=== PATIENT | female | born 1990 | race African-American/Black ===

== ENCOUNTER 2020-05-27 05:30 | Inpatient (IN) | payer OTHER ==
[~2020-05-27 05:30] MED LIST: AMPICILLIN SODIUM 2 GM VIAL IVPB ONE; ELECTROLYTE-148 SOLN 1,000 ML IV SCH
[2020-05-27] MEDS ORDERED: AMPICILLIN SODIUM 2 GM VIAL ONE (06:17)
[2020-05-27 06:24] VITALS: BMI 34.1
[2020-05-27 08:23] LABS: INR 0.91 (0.83-1.09); PROTHROMBIN TIME (PATIENT) 11.1 SEC (9.7-13.0)
[2020-05-27 08:25] LABS: ACTIVATED PTT 31.9 SECONDS (25.2-36.5)
[2020-05-27 08:26] LABS: CALCIUM 9.8 mg/dL (8.5-10.1)
[2020-05-27 08:27] LABS: BLOOD UREA NITROGEN 7.5 mg/dL (7-18)
[2020-05-27 08:30] LABS: BASO % 0.5 % (0-2.0); CREATININE 0.7 mg/dL (0.55-1.3); EOS % 0.3 % (0-4.5); HEMATOCRIT 35.7 % (32.4-45.2); HEMOGLOBIN 12.5 GM/dL (10.7-15.3); MCH 31.6 pg (25.7-33.7); MEAN CELL VOLUME 90.3 fl (80-96); MEAN PLT VOLUME 9.7 fl (7.5-11.1); MONO % 8.9 % (3.8-10.2); NEUT % 74.3 % (42.8-82.8); PLATELET COUNT 247 K/MM3 (134-434); RBC 3.95 M/mm3 (3.60-5.2); RDW 14.5 % (11.6-15.6); WHITE BLOOD COUNT 10.4 K/mm3 (4.0-10.0)
[2020-05-27] MEDS ORDERED: AMPICILLIN SODIUM 1 GM VIAL IVPB SCH (09:20)
[2020-05-27] MEDS ORDERED: PCA PUMP NR ONE (09:23)
[2020-05-27] MEDS ORDERED: FENTANYL/BUPIVACAINE/NS/PF - PCEA - 50 ML DISP.SYRIN EP ONE (09:23)
[2020-05-27 09:38] LABS: HIV INTERPRETATION NEGATIVE (NEGATIVE)
[2020-05-27] MEDS ORDERED: BUPIVACAINE HCL/PF 0.25% (2.5MG/ML) 10 ML VIAL ONE (09:57)
[2020-05-27] MEDS: FENTANYL/BUPIVACAINE/NS/PF - PCEA - 50 ML DISP.SYRIN EP SCH (10:25)
[2020-05-27] MEDS ORDERED: AMPICILLIN SODIUM 1 GM VIAL ONE (10:30)
[2020-05-27] MEDS: AMPICILLIN SODIUM 1 GM VIAL IVPB SCH ×2 (10:30→15:57)
[2020-05-27] MEDS ORDERED: NALOXONE HCL 0.4 MG/ML VIAL IVPUSH PRN (10:41)
[2020-05-27] MEDS ORDERED: OXYTOCIN 20 UNITS in 0.9% NS 20 UNIT/1,000 ML INFUS.BAG IV ONE ×2 (12:35→13:42)
[2020-05-27] MEDS ORDERED: LIDOCAINE HCL 1% PRESERVATIVE FREE - 30ML VIAL ONE (12:36)
[2020-05-27] MEDS ORDERED: BENZOCAINE 20% 57 GM BOTTLE TP PRN (13:27)
[2020-05-27] MEDS ORDERED: BENZOCAINE 28 GM HEMORRHOIDAL OINTMENT TP PRN (13:27)
[2020-05-27] MEDS ORDERED: WITCH HAZEL 50% (TUCKS) 40 PAD/JAR PAD TP PRN (13:27)
[2020-05-27] MEDS ORDERED: METHYLERGONOVINE MALEATE 0.2 MG/1 ML AMP IM PRN (13:27)
[2020-05-27] MEDS ORDERED: BISACODYL 10 MG SUPP.RECT RC PRN (13:27)
[2020-05-27] MEDS ORDERED: D5W-LR W/ 20 UNITS OXYTOCIN 20 UNIT/1,000 ML INFUS.BAG IV SCH (13:30)
[2020-05-27 13:47] LABS: CORD BASE EXCESS -4.2 mmol/L (0-2); CORD HCO3 22.2 mmHg (20-29); CORD PCO2 45.3 mmHg (30-78); CORD pH 7.309 (7.14-7.44)
[2020-05-27 13:58] LABS: CORD PCO2 56.4 mmHg (30-78); CORD pH 7.218 (7.14-7.44)
[2020-05-27 13:59] LABS: CORD HCO3 22.5 mmHg (20-29)
[2020-05-27] MEDS ORDERED: IBUPROFEN 600 MG TABLET (FP) PO ONE (15:58)
[2020-05-27] MEDS ORDERED: ACETAMINOPHEN 325 MG TABLET (FP) ONE (15:58)
[2020-05-27] MEDS: IBUPROFEN 600 MG TABLET (FP) PO PRN ×2 (16:01→21:25)
[2020-05-27] MEDS: ACETAMINOPHEN 325 MG TABLET (FP) PO PRN ×2 (16:01→21:24)
[2020-05-27] MEDS: FERROUS SO4 325 MG TABLET (FP) PO SCH (21:24)
[2020-05-28] MEDS: ACETAMINOPHEN 325 MG TABLET (FP) PO PRN ×3 (08:18→20:19)
[2020-05-28] MEDS: IBUPROFEN 600 MG TABLET (FP) PO PRN ×3 (08:19→20:19)
[2020-05-28 08:22] LABS: BASO % 0.7 % (0-2.0); EOS % 0.2 % (0-4.5); HEMATOCRIT 30.3 % (32.4-45.2); HEMOGLOBIN 10.3 GM/dL (10.7-15.3); LYMPH % 15.7 % (8-40); MCH 30.8 pg (25.7-33.7); MCHC 33.9 g/dl (32.0-36.0); MEAN CELL VOLUME 90.8 fl (80-96); MEAN PLT VOLUME 9.3 fl (7.5-11.1); MONO % 6.4 % (3.8-10.2); PLATELET COUNT 194 K/MM3 (134-434); RBC 3.34 M/mm3 (3.60-5.2); RDW 14.9 % (11.6-15.6); WHITE BLOOD COUNT 12.8 K/mm3 (4.0-10.0)
[2020-05-28] MEDS: FERROUS SO4 325 MG TABLET (FP) PO SCH ×2 (10:43→21:48)
[2020-05-28] MEDS: PRENATAL VITAMINS W/ FOLIC ACID TABLET (FP) PO SCH (10:43)
[2020-05-28] MEDS: FENTANYL/BUPIVACAINE/NS/PF - PCEA - 50 ML DISP.SYRIN EP SCH (20:17)
[2020-05-28] MEDS ORDERED: SENNOSIDES/DOCUSATE COMBO (SENNA PLUS) TABLET (UD) PO PRN (22:00)
[2020-05-28] MEDS: OXYTOCIN 20 UNITS in 0.9% NS 20 UNIT/1,000 ML INFUS.BAG IV SCH (22:20)
[2020-05-28] MEDS: ELECTROLYTE-148 SOLN 1,000 ML IV SCH (22:20)
[2020-05-29] MEDS: ACETAMINOPHEN 325 MG TABLET (FP) PO PRN ×2 (03:59→11:03)
[2020-05-29] MEDS: IBUPROFEN 600 MG TABLET (FP) PO PRN ×2 (03:59→11:03)
[2020-05-29] MEDS: PRENATAL VITAMINS W/ FOLIC ACID TABLET (FP) PO SCH (11:02)
[2020-05-29] MEDS: FERROUS SO4 325 MG TABLET (FP) PO SCH (11:03)
[2020-05-29 12:40] VITALS: BP 122/69; PULSE 60; TEMP 98.2
[2020-05-31 08:36] LABS: POC NITRAZINE POS
== END 2020-05-29 14:25 | disposition home or self-care (01) | DRG 807 ==
LOC: JLDR 05:30 → J3W 16:30
PROVIDERS: ADMIT Obstetrics & Gynecology; ATTEND Obstetrics & Gynecology
PROC: 10E0XZZ Delivery of Products of Conception, External Approach (ICD-10-PCS; principal; 2020-05-27)
PROC: 0W8NXZZ Division of Female Perineum, External Approach (ICD-10-PCS; 2020-05-27)
DX: O42.02 Full-term premature rupture of membranes, onset of labor within 24 hours of rupture (principal); O69.81X0 Labor and delivery complicated by cord around neck, without compression, not applicable or unspecified; Z37.0 Single live birth; Z3A.39 39 weeks gestation of pregnancy
CPT/HCPCS: 36415; 36600; 59409; 80048; 82803; 83986-QW; 85025; 85610; 85730; 86780; 86850; 86900; 86901; 87389; C9803; U0003; U0005